=== PATIENT | female | born 1950 | race Caucasian/White ===

== ENCOUNTER 2016-10-01 06:49 | Emergency (ER) | payer BC ==
[~2016-10-01] VITALS: Ht 160 cm; Wt 64.5 kg
[~2016-10-01 06:49] MED LIST: AUG875; CLIN-72; FAMO-18; HYDR-3498 PO; IBUP-1542; IBUP-1542 PO; THYR120T
[2016-10-01 06:50] VITALS: Ht 160 cm; Wt 64.5 kg
--- NOTE | 2016-10-01 07:10 | ERD ---
ER Documentation Chief Complaint Date/Time DATE: 10/01/16 TIME: 07:07 Chief Complaint cough x 3 days HPI This is a 65-year-old female who presents the emergency department today complaining of cough for the past 4 days. Patient states she is taking Mucinex but she is unsure if it is helping. States that she does have some body aches and sinus congestion as well. Denies any fevers but states that she feels chilled. States she is a former smoker. Denies any prolonged travel, recent travel or sick contacts. ROS All systems reviewed and are negative except as per history of present illness. Medications Home Meds Active Scripts Azithromycin* (Zithromax*) 250 Mg Tablet, 250 MG PO .ZPACK DIRECTED, #6 TAB TAKE 500 MG (2 TABS) THE FIRST DAY THEN 250 MG (1 TAB) DAYS 2-5 Prov:RAMA MCINTYRE PA-C 10/01/16 Albuterol Sulfate* (Ventolin HFA*) 18 Gm Hfa.aer.ad, 2 PUFF INHALATION Q4H, #1 INHALER Prov:RAMA MCINTYRE PA-C 10/01/16 Hydrocodone Bit-Acetaminophen* ([place]*) 5-325 Mg Tab, 1 TAB PO Q6 Y for PAIN, # 10 TAB Prov:RAMA MCINTYRE PA-C 11/19/15 Ibuprofen* (Motrin*) 600 Mg Tab, 600 MG PO Q6, #30 TAB Prov:RAMA MCINTYRE PA-C 11/19/15 Reported Medications Ibuprofen* (Motrin*) 600 Mg Tab, Q6H 09/06/13 Amoxicillin-Clavulanate K* (Augmentin*) 875 Mg Tab, BID 09/06/13 Clindamycin Hcl* (Clindamycin Hcl*) 150 Mg Capsule 09/06/13 Famotidine* (Pepcid*) 20 Mg Tablet 09/06/13 Thyroid* ([place] Thyroid*) 120 Mg Tablet 09/06/13 Discontinued Scripts Fluticasone Propionate (Flonase Allergy Relief) 9.9 Ml [place].susp, 1 SPRAY NASAL BID, #1 BOTTLE TO EACH NOSTRIL Prov:RAMA MCINTYRE PA-C 10/01/16 Allergies Allergies: Coded Allergies: No Known Allergy (Unverified , 09/06/13) PMhx/Soc History of Surgery: Yes (rt hip replacement ) Anesthesia Reaction: No Hx Neurological Disorder: No Hx Respiratory Disorders: No Hx Cardiac Disorders: No Hx Psychiatric Problems: No Hx Miscellaneous Medical Probl: Yes (colitis) Hx Alcohol Use: No Hx Substance Use: No Hx Tobacco Use: No Physical Exam Vitals Vital Signs Date Time Temp Pulse Resp B/P Pulse Ox O2 Delivery O2 Flow Rate FiO2 10/01/16 06:50 98.2 90 18 160/83 97 Physical Exam Const: No acute distress Head: Atraumatic Eyes: Normal Conjunctiva ENT: Ears TMs normal. Nose no drainage. Throat erythema no exudate. Tenderness frontal and maxillary sinuses. Neck: Full range of motion..~ No meningismus. Resp: Clear to auscultation bilaterally. Productive cough. Cardio: Regular rate and rhythm, no murmurs Skin: No petechiae or rashes Ext: No cyanosis, or edema Neur: Awake and alert Psych: Normal Mood and Affect Results 24 hrs DIAGNOSTIC IMAGING REPORT Patient: JERALD DORADO : 1950 Age: 65 Sex: F MR #: [id number] DOS: 10/01/16 0000 Ordering MD: RAMA MCINTYRE PA-C Location: [facility] Room/Bed: PROCEDURE: XR Chest 1 View. CLINICAL INDICATION: Cough TECHNIQUE: AP view of the chest was obtained. COMPARISON: None. FINDINGS: The heart size is within normal limits. Calcified atherosclerosis is noted in the aorta. Scattered atelectasis versus minimal infiltrates is noted in the left lower lobe. The lungs are hyperexpanded. Diffuse mild interstitial prominence is seen in both lungs. Osseous structures are intact. IMPRESSION: Calcified atherosclerosis in the aorta. Scattered atelectasis versus minimal infiltrates in the left lower lobe. Hyperexpanded lungs with diffuse mild interstitial prominence in both lungs. Interstitial prominence could be chronic. Findings could reflect COPD. RPTAT: AA .Sadiq Bailey MD, Date Time Electronically viewed and signed by .Sadiq Bailey MDMD on 10/01/2016 08:22 .P/ CC: RAMA MCINTYRE PA-C Procedures/[facility] This 65-year-old female presents the emergency department today complaining of cough and sinus congestion for the past 4 days. Patient had tried over-the- counter Mucinex with no significant improvement. Patient is a former smoker and therefore did obtain a chest x-ray. Chest x-ray shows calcified atherosclerosis in the aorta. There is scattered atelectasis versus minimal infiltrates in the left lower lobe. There is hyperexpanded lungs with diffuse mild interstitial prominence in both lungs. Interstitial prominence could be chronic in findings could reflect COPD. Patient oxygen saturations 97%. She is afebrile. I do not feel that she requires a breathing treatment at this time. Patient symptoms at this time is consistent with cough and possible pneumonia versus COPD versus bronchitis versus sinusitis. I have low suspicion for strep pharyngitis, peritonsillar abscess, retropharyngeal abscess, otitis media, abscess, meningitis, sepsis, or other acute infectious bacterial process. Patient was given a prescription for azithromycin and albuterol inhaler. She may continue taking her Mucinex. At this time the patient is stable for discharge and outpatient management. Patient should follow up with their PCP in the next 1-2 days. I have given patient information for pulmonology referral .they may return to the emergency department sooner for any persistent or worsening of symptoms. Patient understood and agreed with the plan. Discussed the patient with Dr. Aleman and he is in agreement with the plan. Departure Diagnosis: Primary Impression: Pneumonia Pneumonia type: due to unspecified organism Laterality: left Lung location : lower lobe of lung Qualified Code: J18.1 - Pneumonia of left lower lobe due to infectious organism Condition: Fair RAMA MCINTYRE PA-C October 01, 2016 07:10
--- NOTE | 2016-10-01 08:22 | RADRPT ---
PROCEDURE: XR Chest 1 View. CLINICAL INDICATION: Cough TECHNIQUE: AP view of the chest was obtained. COMPARISON: None. FINDINGS: The heart size is within normal limits. Calcified atherosclerosis is noted in the aorta. Scattered atelectasis versus minimal infiltrates is noted in the left lower lobe. The lungs are hyperexpanded . Diffuse mild interstitial prominence is seen in both lungs. Osseous structures are intact. IMPRESSION: Calcified atherosclerosis in the aorta. Scattered atelectasis versus minimal infiltrates in the left lower lobe. Hyperexpanded lungs with diffuse mild interstitial prominence in both lungs. Interstitial prominenc e could be chronic. Findings could reflect COPD. RPTAT: AA .Sadiq Bailey MD, Date Time Electronically viewed and signed by .Sadiq Bailey MD, on 10/01/2016 08:22 .P/
[2016-10-01] MEDS ORDERED: ALBU18HF INHALATION (08:31)
[2016-10-01] MEDS ORDERED: AZIT250T94 PO (08:36)
[2016-10-01] MEDS ORDERED: FLUT9.9S NASAL (08:39)
== END 2016-10-01 08:42 | disposition home or self-care (01) ==
LOC: FTE 06:49
DX: J18.1 Lobar pneumonia, unspecified organism (principal); Z96.641 Presence of right artificial hip joint
CPT/HCPCS: 71010